=== PATIENT | female | born 2000 | race Caucasian/White ===

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

== ENCOUNTER 2020-04-26 19:21 | Emergency (ER) | payer OTHER ==
[~2020-04-26] VITALS: Ht 177.8 cm; Wt 72.6 kg
[~2020-04-26 19:21] MED LIST changes: +BUSPIRONE HCL10 MG PO; +KEFLEX500 M1 PO; +SERTRALINE HCL50 MG PO; +TRAZODONE HCL50 MG PO; +XANAX 0.5 MG0.5 M1 PO
[2020-04-26] MEDS ORDERED: FLOVENT HFA 4444 MCG (19:31)
[2020-04-26 20:23] LABS: BASOPHILS 0.6 % (0.0-2.0); EOSINOPHILS 0.8 % (0.0-3.0); HEMATOCRIT 38.4 % (37.0-47.0); HEMOGLOBIN 12.8 gm/dL (12.0-15.0); LYMPHOCYTES 18.9 % (24.0-44.0); MCH 31.3 pg (26.0-34.0); MCHC 33.3 g/dL (28.0-37.0); PLATELET COUNT 214 thou/uL (150-400); POLYS 70.7 % (36.0-66.0); RBC 4.08 mil/uL (4.20-5.00); RDW 13.7 % (10.5-14.5); WBC 11.3 thou/uL (4.0-11.0)
[2020-04-26 20:39] LABS: CALCIUM 9.2 mg/dL (8.5-10.1); CREATININE 0.9 mg/dL (0.6-1.0); POTASSIUM 3.6 mmol/L (3.5-5.1)
[2020-04-26 20:46] LABS: ALBUMIN 4.5 g/dL (3.4-5.0); TOTAL BILIRUBIN 1.2 mg/dL (0.2-1.0); TOTAL PROTEIN 8.1 g/dL (6.4-8.2)
[2020-04-26] MEDS ORDERED: PENICILLIN VK500 M1 PO (21:03)
[2020-04-26 21:48] VITALS: BP 104/61
== END 2020-04-26 21:48 | disposition home or self-care (01) ==
LOC: ER 19:21
PROVIDERS: Nurse Practitioner
DX: K04.7 Periapical abscess without sinus (principal); Z79.899 Other long term (current) drug therapy